=== PATIENT | female | born 1980 | race Hispanic/Latino ===

== ENCOUNTER → 2025-05-07 09:23 | Outpatient (CLI) | payer OTHER, SELFPAY ==
[2025-05-07 09:58] LABS: Add Manual Diff / Slide Review NO; Hematocrit 41.3 % (36-46); Hemoglobin 13.8 g/dL (12.0-16.0); Lymphocytes Absolute Auto 900 /uL (1100-4500); Mean Corpuscular HGB Conc 33.3 % (30-36); Mean Corpuscular Hemoglobin 29.7 PG (26-34); Mean Corpuscular Volume 89.2 fL (80-100); Platelet Count 237 X10^3/uL (150-400)
== END ==
PROVIDERS: PCP Family Medicine; Referring Provider Family Medicine; Visit Provider Family Medicine
DX: R20.9 Unspecified disturbances of skin sensation (principal); R68.82 Decreased libido; R51.9 Headache, unspecified; R79.89 Other specified abnormal findings of blood chemistry; Z72.820 Sleep deprivation; D72.819 Decreased white blood cell count, unspecified; R76.89 Other specified abnormal immunological findings in serum
CPT/HCPCS: 36415; 85025; 85651; 86140

== ENCOUNTER → 2025-06-10 09:43 | Outpatient (CLI) | payer OTHER, SELFPAY ==
[2025-06-10 10:02] LABS: Hematocrit 40.4 % (36-46); Hemoglobin 13.7 g/dL (12.0-16.0); Mean Corpuscular HGB Conc 33.9 % (30-36); Mean Corpuscular Hemoglobin 30.1 PG (26-34); Mean Corpuscular Volume 88.8 fL (80-100); Platelet Count 269 X10^3/uL (150-400)
[2025-06-10 10:13] LABS: Atypical Lymphocytes Percent 4.0 %; Eosinophils Percent Manual 1.0 % (2-4); Lymphocytes Percent Manual 36.0 % (25-45); Monocytes Percent Manual 10.0 % (2-11); Neutrophils Absolute Manual 2107 /uL (3000-5900); RBC Morphology Normal Morphology; Segmented Neutrophils Percent 49.0 % (38-70); Total Cells Counted 100
== END ==
PROVIDERS: PCP Family Medicine; Referring Provider Family Medicine; Visit Provider Family Medicine
DX: R76.89 Other specified abnormal immunological findings in serum (principal)
CPT/HCPCS: 36415; 85025